=== PATIENT | male | born 1980 | race Caucasian/White ===

== ENCOUNTER → 2017-02-23 | Outpatient (CLI) | payer OTHER ==
--- NOTE | 2017-02-23 08:01 | REP ---
CT abdomen pelvis without IV or bowel contrast for evaluation of right inguinal hernia. The patient reportedly had a right inguinal hernia repair, currently complains of increasing pain in the right inguinal area. Reportedly ultrasound did not demonstrate a recurrent hernia. Scanning is performed of the diaphragms to the pubic symphysis. The visualized lung balderrama are unremarkable. The unenhanced hepatic parenchyma, gallbladder, pancreas and spleen are normal size and unremarkable. The adrenals, unenhanced kidneys and abdominal aorta are unremarkable. There is no bowel distension. Mesentery is unremarkable. Pelvis: The appendix has a normal appearance except for appendicoliths. There is no inguinal hernia on the right or the left. There are no surgical clips in the right and left inguinal areas. The bladder is unremarkable. The pelvic bowel loops are unremarkable. There is no pelvic adenopathy or ascites. The sacrum, sacroiliac joints, pelvis and right and left hips are unremarkable. The lumbar spine is unremarkable. Impression: There is no hernia in the right or left inguinal areas. There is no ventral hernia, otherwise. There are appendicoliths. The appendix is otherwise unremarkable. There is no ascites or adenopathy. Otherwise, negative CT of the abdomen and pelvis. Signed by John Ng MD 02/23/2017 07:53 A
== END ==
LOC: M RAD 07:01
PROVIDERS: ATTEND Family Medicine
DX: R10.31 Right lower quadrant pain (principal)

== ENCOUNTER → 2018-02-19 | Outpatient (CLI) | payer OTHER ==
[~2018-02-19] MED LIST: ISOVUE-370 76% 100ML VIAL (Q9967) As Ordered
== END ==
LOC: M RAD 08:13
DX: N50.811 Right testicular pain (principal)
CPT/HCPCS: Q9967